=== PATIENT | male | born 1965 | race Caucasian/White ===

== ENCOUNTER 2017-11-04 20:32 | Inpatient (IN) | payer OTHER ==
[~2017-11-04] VITALS: Ht 170.2 cm; Wt 86.2 kg
[2017-11-04] MEDS ORDERED: SINGULAIR 10MG10 MG (21:40)
[2017-11-04] MEDS ORDERED: ZYRTEC10 M3 (21:40)
[2017-11-04] MEDS ORDERED: FLOVENT DISKUS50 MCG (21:41)
[2017-11-04] MEDS ORDERED: BREO ELLIPTA 21 EACH (21:41)
[2017-11-04] MEDS ORDERED: NEXIUM20 M1 (21:42)
[2017-11-06] MEDS ORDERED: INTEGRA PLUS C1 EACH PO (08:40)
== END 2017-11-06 17:29 | disposition home or self-care (01) | DRG 812 ==
LOC: ER 20:32 → MEDJ 11-05 09:00 → SEC-K 11-05 09:00 → MEDJ 11-05 13:58
PROC: 30233N1 Transfusion of Nonautologous Red Blood Cells into Peripheral Vein, Percutaneous Approach (ICD-10-PCS; 2017-11-05)
PROC: 0DB98ZX Excision of Duodenum, Via Natural or Artificial Opening Endoscopic, Diagnostic (ICD-10-PCS; principal; 2017-11-06)
PROC: 0DB78ZX Excision of Stomach, Pylorus, Via Natural or Artificial Opening Endoscopic, Diagnostic (ICD-10-PCS; 2017-11-06)
PROC: 0DJD8ZZ Inspection of Lower Intestinal Tract, Via Natural or Artificial Opening Endoscopic (ICD-10-PCS; 2017-11-06)
PROC: 0DB48ZX Excision of Esophagogastric Junction, Via Natural or Artificial Opening Endoscopic, Diagnostic (ICD-10-PCS; 2017-11-06)
DX: D50.8 Other iron deficiency anemias (principal); R55 Syncope and collapse; K57.30 Diverticulosis of large intestine without perforation or abscess without bleeding; K31.7 Polyp of stomach and duodenum